=== PATIENT | female | born 1990 | race Caucasian/White ===

== ENCOUNTER 2017-03-28 18:06 | Outpatient (CLI) | payer BC, OTHER | END 2017-03-28 21:19 | disposition home or self-care (01) | LOC: GENOP 18:06 | DX: O47.03 False labor before 37 completed weeks of gestation, third trimester (principal); M54.9 Dorsalgia, unspecified; R10.9 Unspecified abdominal pain; Z3A.36 36 weeks gestation of pregnancy | CPT/HCPCS: 81001; G0463 ==

== ENCOUNTER → 2017-03-30 | Outpatient (CLI) | payer BC, OTHER | LOC: GENOP 12:42 | DX: O99.89 Other specified diseases and conditions complicating pregnancy, childbirth and the puerperium (principal); R10.9 Unspecified abdominal pain; Z3A.37 37 weeks gestation of pregnancy | CPT/HCPCS: 81001; G0463 ==

== ENCOUNTER 2017-04-02 13:58 | Outpatient (CLI) | payer BC, OTHER ==
[~2017-04-02] VITALS: Ht 152.4 cm; Wt 92.5 kg
== END 2017-04-02 15:17 | disposition home or self-care (01) ==
LOC: GENOP 13:58
DX: O42.913 Preterm premature rupture of membranes, unspecified as to length of time between rupture and onset of labor, third trimester (principal); O99.89 Other specified diseases and conditions complicating pregnancy, childbirth and the puerperium; R10.9 Unspecified abdominal pain; Z3A.37 37 weeks gestation of pregnancy
CPT/HCPCS: 81001; 83518; G0463

== ENCOUNTER 2017-04-13 05:35 | Inpatient (IN) | payer BC, OTHER ==
[~2017-04-13] VITALS: Ht 152.4 cm; Wt 94.8 kg
[2017-04-13 06:37] LABS: HEMOGLOBIN 12.3 gm/dl (12.3-15.3); RED BLOOD COUNT 4.42 M/UL (4.00-5.10); WHITE BLOOD COUNT 8.9 K/UL (4.5-11.0)
[2017-04-14 04:37] LABS: HEMOGLOBIN 10.1 gm/dl (12.3-15.3)
== END 2017-04-14 14:14 | disposition home or self-care (01) | DRG 775 ==
LOC: GENOP 05:35 → OB 06:04
PROVIDERS: Obstetrics & Gynecology; ADMIT Obstetrics & Gynecology
PROC: 10E0XZZ Delivery of Products of Conception, External Approach (ICD-10-PCS; principal; 2017-04-13)
PROC: 10907ZC Drainage of Amniotic Fluid, Therapeutic from Products of Conception, Via Natural or Artificial Opening (ICD-10-PCS; 2017-04-13)
PROC: 3E033VJ Introduction of Other Hormone into Peripheral Vein, Percutaneous Approach (ICD-10-PCS; 2017-04-13)
DX: O36.63X0 Maternal care for excessive fetal growth, third trimester, not applicable or unspecified (principal); Z3A.39 39 weeks gestation of pregnancy; Z37.0 Single live birth; Z79.899 Other long term (current) drug therapy
CPT/HCPCS: 36415; 51702; 81001; 82800; 85014; 85018; 85025; 90715; J2210; J2590; J2795; J3010; J7120